=== PATIENT | female | born 1955 | race Hispanic/Latino ===

== ENCOUNTER 2017-02-10 20:41 | Emergency (ER) | payer MEDICARE ==
--- NOTE | 2017-02-10 21:31 | Cat Scan Report ---
FINAL REPORT PROCEDURE: CT HEAD/BRAIN WO CON TECHNIQUE: Computerized tomography of the head was performed without contrast material. HISTORY: fall, hematoma COMPARISON: No prior studies are available for comparison. FINDINGS: Brain: There is no evidence of intracranial hemorrhage. No parenchymal hemorrhage is seen. No mass lesions or mass effect is identified. No abnormal extra-axial fluid collections or masses are seen. Small low-density lesions seen inferior aspect of the left basal ganglia posterior laterally and inferior aspect of the right basal ganglia posterior laterally. This may represent prominent perivascular spaces. I cannot exclude small old lacunar infarcts. Given their positioning the former may be more likely. There is some decreased density seen in the periventricular white matter without mass effect. This is fairly symmetric and does not exhibit any mass effect consistent with gliosis probably on the basis of microvascular disease or white matter changes of aging. Ventricles: The ventricles, sulcal pattern and fissures are prominent consistent with atrophy. Bones: No evidence of acute fracture. Probable small scalp hematoma left occipital region inferiorly. Paranasal sinuses: Visualized portions appear clear. Mastoid air cells: clear IMPRESSION: There is evidence of moderate atrophy and gliosis. Probable prominent perivascular spaces inferior aspect of the basal ganglia versus old lacunar infarcts. No acute intracranial abnormalities are identified. No evidence of intracranial hemorrhage or skull fracture. Probable small hematoma subcutaneous tissues left cerebellar region inferiorly.
--- NOTE | 2017-02-10 22:13 | Emergency Department Report ---
HPI - General Chief Complaint: Fall Time Seen by Provider: 02/10/17 21:11 - HPI HPI: This is a 61-year-old female presents to the emergency department by EMS from [facility] with complaint of a ground-level fall that happened earlier today. The patient did not have loss of consciousness. Her only complaint is posterior head pain. She is not on any blood thinners. She has a history of depression, hypothyroidism, history of alcohol abuse and a history of some generalized muscle weakness. The patient says that she was getting up from sitting and then found herself falling down and there was nothing she could do to stop it. She denies any vision change, slurred speech, chest pain, shortness of breath. ED Past Medical Hx - Past Medical History Previous Medical History?: Yes Hx Psychiatric Treatment: Yes (Depression, ETOH) Additional medical history: Hypothyroidism; weakness - Surgical History Past Surgical History?: Yes Additional Surgical History: Gastric Bypass - Social History Smoking Status: Unknown if ever smoked - Medications Home Medications: Home Medications Medication Instructions Recorded Confirmed Last Taken Type Nitrofurantoin [place]/M-Cryst 100 mg PO BID #14 capsule 02/11/17 Unknown Rx [Macrobid CAP] ED Review of Systems ROS: Stated complaint: FALL/BACK PAIN Other details as noted in HPI Comment: All other systems reviewed and negative Constitutional: denies: chills, fever Eyes: denies: eye pain, eye discharge, vision change ENT: denies: ear pain, throat pain Respiratory: denies: cough, shortness of breath, wheezing Cardiovascular: denies: chest pain, palpitations Gastrointestinal: denies: abdominal pain, nausea, diarrhea Genitourinary: denies: urgency, dysuria, discharge Musculoskeletal: denies: back pain, joint swelling, arthralgia Skin: denies: rash, lesions Neurological: headache. denies: numbness Physical Exam - Physical Exam Physical Exam: GENERAL: The patient is well-developed well-nourished. HENT: Normocephalic. Small posterior non-expanding hematoma. Patient has moist mucous membranes. Oropharynx is clear. No septal hematoma. EYES: Extraocular motions are intact. Pupils equal reactive to light bilaterally. No nystagmus. NECK: Supple. Trachea is midline. CHEST/LUNGS: Clear to auscultation. There is no respiratory distress noted. HEART/CARDIOVASCULAR: Regular. There is no tachycardia. There is no gallop rub or murmur. ABDOMEN: Abdomen is soft, nontender. Patient has normal bowel sounds. There is no abdominal distention. SKIN: There is no rash. There is no edema. There is no diaphoresis. NEURO: The patient is awake, alert. The patient is cooperative. The patient has no focal neurologic deficits. The patient has normal speech. MUSCULOSKELETAL: There is no tenderness or deformity. There is no limitation range of motion. Radial pulse was +2 over 4 bilaterally. Cap refill is 2 seconds. ED Medical Decision Making - Lab Data Result diagrams: 02/10/17 21:42 02/10/17 21:42 - EKG Data -: EKG Interpreted by [facility] EKG shows normal: sinus rhythm, axis, intervals (mild prolongation of Qtc), QRS complexes (low voltage), ST-T waves - EKG Data When compared to previous EKG there are: previous EKG unavailable Interpretation: other (sinus rhythm, low voltage, mild prolongation of QTC) - Radiology Data Radiology results: report reviewed PROCEDURE: CT HEAD/BRAIN WO CON TECHNIQUE: Computerized tomography of the head was performed without contrast material. HISTORY: fall, hematoma COMPARISON: No prior studies are available for comparison. FINDINGS: Brain: There is no evidence of intracranial hemorrhage. No parenchymal hemorrhage is seen. No mass lesions or mass effect is identified. No abnormal extra-axial fluid collections or masses are seen. Small low-density lesions seen inferior aspect of the left basal ganglia posterior laterally and inferior aspect of the right basal ganglia posterior laterally. This may represent prominent perivascular spaces. I cannot exclude small old lacunar infarcts. Given their positioning the former may be more likely. There is some decreased density seen in the periventricular white matter without mass effect. This is fairly symmetric and does not exhibit any mass effect consistent with gliosis probably on the basis of microvascular disease or white matter changes of aging. Ventricles: The ventricles, sulcal pattern and fissures are prominent consistent with atrophy. Bones: No evidence of acute fracture. Probable small scalp hematoma left occipital region inferiorly. Paranasal sinuses: Visualized portions appear clear. Mastoid air cells: clear IMPRESSION: There is evidence of moderate atrophy and gliosis. Probable prominent perivascular spaces inferior aspect of the basal ganglia versus old lacunar infarcts. No acute intracranial abnormalities are identified. No evidence of intracranial hemorrhage or skull fracture. Probable small hematoma subcutaneous tissues left cerebellar region inferiorly. - Medical Decision Making 61-year-old female presents to the emergency department from [facility] after a ground-level fall. She did not have a loss of consciousness. Her only complaint was pain to the head. CT scan does not show any bleed, shift, mass or any acute process. The rest of her labs are mostly unremarkable except for hypokalemia. Potassium 2.9 with potassium chloride and her repeat potassium should be somewhere around 3.4. Vital signs stable. She is AAO 2 and we spoke with the alf and that is her baseline mental status. She was sent back there with encouragement to see the PCP in next 2 days and return to the ER with any worsening of her symptoms or any acute distress. - Differential Diagnosis contusion, hematoma, skull fracture, brain bleed Critical Care Time: No Critical care attestation.: If time is entered above; I have spent that time in minutes in the direct care of this critically ill patient, excluding procedure time. ED Disposition Clinical Impression: Hypokalemia Fall Qualifiers: Encounter type: initial encounter Qualified Code(s): W19.XXXA - Unspecified fall, initial encounter Scalp hematoma Qualifiers: Encounter type: initial encounter Qualified Code(s): S00.03XA - Contusion of scalp, initial encounter Head injury Qualifiers: Encounter type: initial encounter Qualified Code(s): S09.90XA - Unspecified injury of head, initial encounter UTI (urinary tract infection) Qualifiers: Urinary tract infection type: acute cystitis Hematuria presence: without hematuria Qualified Code(s): N30.00 - Acute cystitis without hematuria Disposition: - TO HOME OR SELFCARE Is pt being admited?: No Condition: Stable Instructions: Urinary Tract Infection in Women (ED), Hypokalemia (ED), Minor Head Injury (ED) Additional Instructions: Please follow up with a primary care physician in the next few days. Return to the emergency Department with any worsening of your symptoms or any acute distress. Prescriptions: Nitrofurantoin [place]/M-Cryst [Macrobid CAP] 100 mg PO BID #14 capsule Referrals: PRIMARY CARE, [Primary Care Provider] - JACQUELYN Time of Disposition: 01:58
[2017-02-10 22:23] LABS: Anion Gap 20 mmol/L; Blood Urea Nitrogen 7 mg/dL (7-17); Calcium 7.7 mg/dL (8.4-10.2); Carbon Dioxide 21 mmol/L (22-30); Chloride 105.5 mmol/L (98-107); Creatine Kinase 50 units/L (30-135); Glucose 73 mg/dL (65-100); Sodium 144 mmol/L (137-145)
[2017-02-10 22:29] LABS: Potassium 2.9 mmol/L (3.6-5.0)
[2017-02-10 22:30] LABS: Basophils % (Auto) 0.3 % (0.0-1.8); Eosinophils % (Auto) 2.9 % (0.0-4.3); Hematocrit 26.2 % (30.3-42.9); Hemoglobin 8.7 gm/dl (10.1-14.3); Mean Corpuscular HGB Conc 33 % (30-34); Mean Corpuscular Hemoglobin 35 pg (28-32); Mean Corpuscular Volume 105 fl (79-97); Platelet Count 202 K/mm3 (140-440); Red Blood Count 2.49 M/mm3 (3.65-5.03); Red Cell Distribution Width 13.4 % (13.2-15.2); White Blood Count 4.4 K/mm3 (4.5-11.0)
[2017-02-10] MEDS ORDERED: K-DUR PO ONE (23:07)
[2017-02-10] MEDS ORDERED: NACL 0.9% 500 ML 500 ML IV ONE (23:09)
[2017-02-11 01:36] LABS: Bacteria,Urine 1+ /HPF (Negative); Bilirubin,Urine NEG (Negative); Blood,Urine MOD (Negative); Ketones,Urine 20 mg/dL (Negative); Leukocyte Esterase,Urine MOD (Negative); Mucus,Urine FEW /HPF; Nitrite,Urine NEG (Negative); Protein,Urine <15 mg/dL mg/dL (Negative); Urobilinogen,Urine < 2.0 mg/dL (<2.0)
[2017-02-11] MEDS ORDERED: K-DUR PO ONE (01:42)
[2017-02-11] MEDS ORDERED: MACROBID PO ONE (01:42)
[2017-02-11 04:26] VITALS: BP 123/64
== END 2017-02-11 07:07 | disposition home or self-care (01) ==
LOC: ED 20:41
DX: S00.03XA Contusion of scalp, initial encounter (principal); E87.6 Hypokalemia; N30.00 Acute cystitis without hematuria; W18.30XA Fall on same level, unspecified, initial encounter; Y93.9 Activity, unspecified; Y92.9 Unspecified place or not applicable; Y99.9 Unspecified external cause status
CPT/HCPCS: 36415; 70450; 80048; 81001; 82550; 84443; 84484; 85025; 93010; 96360; 99285; J7040